=== PATIENT | male | born 1955 | race Caucasian/White ===

== ENCOUNTER 2020-09-16 10:03 | Outpatient (REF) | payer MEDICARE, SELFPAY ==
--- NOTE | 2020-09-16 | US_ITS ---
EXAMINATION: US RETROPERITONEAL LIMITED (RENAL ONLY) CLINICAL INFORMATION: Renal stone. COMPARISON: Limited retroperitoneal ultrasound dated 01/21/2020. CT abdomen and pelvis without contrast dated 07/31/2019. TECHNIQUE: Real-time imaging of the kidneys. FINDINGS: RIGHT KIDNEY: 11.2 x 6.3 x 6.1 cm (SAG x AP x TRV). The kidney is normal in size, contour, and echogenicity. Renal cortical thickness is normal. No calculi or focal parenchymal lesions. No hydronephrosis. LEFT KIDNEY: 10.7 x 5.3 x 4.9 cm (SAG x AP x TRV). The kidney is normal in size, contour, and echogenicity. Renal cortical thickness is normal. No renal calculi or hydronephrosis. At the interpolar aspect, 2.7 cm and 2.5 cm maximal diameter parapelvic simple cysts are seen seen. At the lower pole, a 3.2 cm in maximal diameter exophytic, simple cyst is seen. US/US renal BI IMPRESSION: 1. No renal calculus or obstructive uropathy is seen bilaterally. 2. There are left renal cysts again seen..
== END 2020-09-16 10:04 | disposition home or self-care (01) ==
LOC: HO.HMGCX 10:03
PROVIDERS: PCP Hospitalist; Visit Provider Urology
DX: N20.0 Calculus of kidney (principal)
CPT/HCPCS: 76775

== ENCOUNTER 2021-01-25 08:04 | Outpatient (REF) | payer SELFPAY ==
--- NOTE | 2021-01-25 08:17 | MHC.AU.P13 ---
Hearing Instrument Maintenance Date of Visit: 01/25/21 Right Ear: Volunteer Services Manager: Phonak Model: VIRTO CROS B-312 Serial Number: [id number] Repair Warranty: 02/17/2022 Loss and Damage Warranty: 02/17/2022 Battery Size: 312 Type of Wax Guard: CERUSTOP Left Ear: Volunteer Services Manager: Phonak Model: VIRTO B90-312 Serial Number: [id number] RepairWarranty: 02/17/2022 Loss and Damage Warranty: 02/17/2022 Battery Size: 312 Type of Wax Guard: CERUSTOP Follow-Up Summary: Patient brought in aids for cleaning. Cleaned and replaced wax guards - amplifying clearly. Patient reports seeing Dr. Acosta next week for wax removal - he's been getting feedback. Recommendations: Recommendations: Hearing instrument follow-up or maintenance as needed. Signature: Provider: SHEFALI Bass-HIS
== END 2021-01-25 08:05 | disposition home or self-care (01) ==
LOC: HO.HAP 08:04
PROVIDERS: Visit Provider Hospitalist
DX: Z46.1 Encounter for fitting and adjustment of hearing aid (principal)
CPT/HCPCS: V5267

== ENCOUNTER 2021-02-02 09:53 | Outpatient (REF) | payer SELFPAY | END 2021-02-02 09:54 | disposition home or self-care (01) | LOC: HO.HAP 09:53 | PROVIDERS: Visit Provider Hospitalist | DX: Z13.89 Encounter for screening for other disorder (principal) ==

== ENCOUNTER 2021-02-17 09:52 | Outpatient (REF) | payer SELFPAY | END 2021-02-17 09:53 | disposition home or self-care (01) | LOC: HO.HAP 09:52 | PROVIDERS: Visit Provider Hospitalist | DX: Z13.89 Encounter for screening for other disorder (principal) ==

== ENCOUNTER 2021-08-29 08:02 | Outpatient (REF) | payer SELFPAY ==
--- NOTE | 2021-08-29 08:16 | MHC.AU.P13 ---
Hearing Instrument Maintenance Date of Visit: 08/29/21 Right Ear: Bacteriologist Medical: Phonak Model: VIRTO CROS B-312 Serial Number: [id number] Repair Warranty: 02/17/2022 Loss and Damage Warranty: 02/17/2022 Battery Size: 312 Color: [place] Type of Wax Guard: CERUSTOP Dispensed By: [facility] Date of Fittin02/03/2019 Left Ear: Bacteriologist Medical: Phonak Model: VIRTO B90-312 Serial Number: [id number] Repair Warranty: 02/17/2022 Loss and Damage Warranty: 02/17/2022 Battery Size: 312 Color: [place] Type of Wax Guard: CERUSTOP Dispensed By: [facility] Date of Fittin02/03/2019 Follow-Up Summary: Patient reports recent ear infection - being treated by Dr. Acosta. Hearing aids cleaned and amplifying clearly. Patient will return to Dr. Acosta if he feels hearing still not improved. Diagnosis Code(s): Primary Diagnosis: H90.3 Bilateral Sensorineural Hearing Loss Signature: Provider: SHEFALI Bass-
== END 2021-08-29 08:03 | disposition home or self-care (01) ==
LOC: HO.HAP 08:02
PROVIDERS: Visit Provider Hospitalist
DX: Z13.89 Encounter for screening for other disorder (principal)

== ENCOUNTER → 2021-09-18 09:17 | Outpatient (BNVA) | payer MEDICARE, SELFPAY | PROVIDERS: PCP Hospitalist; Visit Provider Internal Medicine | DX: S40.021A Contusion of right upper arm, initial encounter (principal); S60.511A Abrasion of right hand, initial encounter; S20.311A Abrasion of right front wall of thorax, initial encounter; S10.91XA Abrasion of unspecified part of neck, initial encounter; Y04.0XXA Assault by unarmed brawl or fight, initial encounter; Y93.9 Activity, unspecified; Y92.9 Unspecified place or not applicable; Y99.0 Civilian activity done for income or pay | CPT/HCPCS: 90471; 90715; 99202 ==

== ENCOUNTER → 2021-09-21 12:50 | Outpatient (BNVA) | payer MEDICARE, SELFPAY | PROVIDERS: PCP Hospitalist; Visit Provider Internal Medicine | DX: S50.11XA Contusion of right forearm, initial encounter (principal); Y04.8XXA Assault by other bodily force, initial encounter | CPT/HCPCS: 99213 ==

== ENCOUNTER 2022-01-15 10:54 | Outpatient (REF) | payer OTHER, SELFPAY | END 2022-01-15 10:55 | disposition home or self-care (01) | LOC: HO.HAP 10:54 | PROVIDERS: Visit Provider Hospitalist | DX: Z13.89 Encounter for screening for other disorder (principal) ==

== ENCOUNTER 2022-01-30 08:58 | Outpatient (REF) | payer MEDICARE, SELFPAY ==
--- NOTE | 2022-02-12 10:45 | MHC.AU.AHA ---
Adult Audiological Evaluation Date of Visit: 01/30/22 Lending Consultant Used: Not Applicable Reason for Appointment: Referred for audiologic re-evaluation to determine possible change in hearing ability. Ervin has a long-standing history asymmetric hearing loss. Previous Hearing Test Results: 04/11/2020 Dr. Acosta's office Left ear - Mild low frequency, dropping to profound high frequency sensorineural hearing loss with 96% speech understanding at 70 dB HL. Right ear - No functional hearing ability Medical History: Medical History: High Blood Pressure, Borderline Diabetes Medication List: Not available Hearing Instrument History- Right Ear: Green Building Engineer: Phonak Model: VIRTO CROS B-312 Serial Number: [id number] Battery Size: 312 Repair Warranty: 08/11/2021 Dispensed By: [facility] Date of Fittin02/03/2019 Hearing Instrument History- Left Ear: Green Building Engineer: Phonak Model: VIRTO B90-312 Serial Number: [id number] Battery Size: 312 Warranty: 02/17/2022 Loss and Damage Warranty: 02/17/2022 Dispensed By: [facility] Date of Fittin02/03/2019 Otoscopy: Right Ear: Unremarkable Left Ear: Unremarkable Tympanometry:Did not test as all previous results have indicated normal middle ear function for both ears. Hearing Evaluation: Transducer(s) Used: Insert Earphones Bone Conduction Method: Conventional Audiometry Stimuli Used: Pure Tones Right Ear: Description of Hearing: Did Not Test due to history of no functional hearing Left Ear: Description of Hearing: Mild mixed hearing loss 250-2000 Hz, dropping to a profound mixed hearing loss 1051-7042 Hz. Speech Recognition Threshold (SRT): Method Used: Monitored Live Voice Stimuli Used: Spondee Words Right Ear: Could Not Test Left Ear: 35 dB HL Word Discrimination: Method: Recorded Lists Word Lists Used: NU-6 Right Ear: Could Not Test Left Ear: 100% at 75 dB HL Comparison: Compared to the most recent evaluation: Hearing is overall stable. Compared to most recent evaluation: Greater conductive components noted today compared to 2020 results. Recommendations: Audiological re-evaluation if changes are noted. Hearing aid(s) reprogrammed with updated test results. Continue with follow-up with Dr. Acosta as advised. Diagnosis: Primary Diagnosis: H90.3 Bilateral Sensorineural Hearing Loss Services Performed: Comprehensive Audiological Evaluation (CPT 39409) Signature: Provider: Michelle Powell, CCC-A
== END 2022-01-30 08:59 | disposition home or self-care (01) ==
LOC: HO.SH 08:58
PROVIDERS: Visit Provider Otolaryngology
DX: H90.3 Sensorineural hearing loss, bilateral (principal)
CPT/HCPCS: 92557

== ENCOUNTER 2022-03-16 10:01 | Outpatient (REF) | payer SELFPAY | END 2022-03-16 10:02 | disposition home or self-care (01) | LOC: HO.HAP 10:01 | PROVIDERS: Visit Provider Hospitalist | DX: Z46.1 Encounter for fitting and adjustment of hearing aid (principal) | CPT/HCPCS: 99499 ==

== ENCOUNTER 2022-08-27 09:29 | Outpatient (REF) | payer SELFPAY ==
--- NOTE | 2022-08-27 11:37 | MHC.AU.HFU ---
Hearing Instrument Follow-Up- Binaural Date of Visit: 08/27/22 Right Ear: Marriage Counselor: Phonak CROS B-312, #[id number] Repair Warranty: 08/11/2021 Loss and Damage Warranty: 02/17/2022 Battery Size: 312 Type of Wax Guard: CERUSTOP Dispensed By: [facility] Date of Fittin02/03/2019 Left Ear: Marriage Counselor: Phonak Virto B90-312, #[id number] Repair Warranty: 02/17/2022 Loss and Damage Warranty: 02/17/2022 Battery Size: 312 Type of Wax Guard: CERUSTOP Dispensed By: [facility] Date of Fittin02/03/2019 Follow-Up Summary: Patient dropped off his hearing instruments, reporting there has been a hissing sound. He has also noticed for a week leading up to the hissing sound that the CROS did not seem to be transmitting much sound. Hearing instruments inspected and cleaned. When the right CROS is off, the left hearing aid sounds normal. When the CROS is on, a constant hissing noise is heard. The CROS is also not transmitting any other sounds. Placed CROS in the electric dehumidifier for several minutes, but did not improve. Called patient to discuss. We will sent the right CROS out for repair out of warranty- discussed $415 cost. Patient came to pick the left side back up so he can continue to use it until the CROS returns. Recommendations: Patient will be contacted when materials have arrived. Diagnosis Code(s): Primary Diagnosis: H90.3 Bilateral Sensorineural Hearing Loss Signature: Provider: Quang Lopez, [facility]
== END 2022-08-27 09:30 | disposition home or self-care (01) ==
LOC: HO.HAP 09:29
PROVIDERS: Visit Provider Hospitalist
DX: Z13.89 Encounter for screening for other disorder (principal)

== ENCOUNTER 2022-09-26 11:27 | Outpatient (REF) | payer MEDICARE, SELFPAY ==
--- NOTE | 2022-09-26 11:57 | MHC.AU.HFU ---
Hearing Instrument Follow-Up- Binaural Date of Visit: 09/26/22 Right Ear: Phonak CROS B-312 SN: [id number] Color: [place] Repair Warranty: 02/28/2023 Loss and Damage Warranty: 02/17/2022 Battery Size: 312 Type of Wax Guard: CERUSTOP Dispensed By: [facility] Date of Fittin02/03/2019 Left Ear: Phonak Virto B90-312 SN: [id number] Color: [place] Repair Warranty: 02/17/2022 Loss and Damage Warranty: 02/17/2022 Battery Size: 312 Type of Wax Guard: CERUSTOP Dispensed By: [facility] Date of Fittin02/03/2019 Follow-Up Summary: Fabrizio picked up his repaired CROS device. Confirmed connection to left hearing aid via [employer]. A listening check demonstrated that the CROS device is transmitting properly with no static sound in the hearing aid. Fabrizio confirmed clear sound quality. Paid $415.00 at front end developer [employer] for repair. Recommendations: Advised of 6 month warranty on CROS device and to call if problems arise. Diagnosis Code(s): Primary Diagnosis: H90.3 Bilateral Sensorineural Hearing Loss Signature: Provider: Quang Cuellar, [facility]-A
== END 2022-09-26 11:28 | disposition home or self-care (01) ==
LOC: HO.HAP 11:27
PROVIDERS: Visit Provider Hospitalist
DX: Z46.1 Encounter for fitting and adjustment of hearing aid (principal); H90.3 Sensorineural hearing loss, bilateral
CPT/HCPCS: V5014

== ENCOUNTER 2023-04-09 11:28 | Outpatient (REF) | payer SELFPAY | END 2023-04-09 11:29 | disposition home or self-care (01) | LOC: HO.HAP 11:28 | PROVIDERS: Visit Provider Hospitalist | DX: Z13.89 Encounter for screening for other disorder (principal) ==

== ENCOUNTER 2023-04-10 13:40 | Outpatient (REF) | payer SELFPAY | END 2023-04-10 13:41 | disposition home or self-care (01) | LOC: HO.HAP 13:40 | PROVIDERS: Visit Provider Hospitalist | DX: Z46.1 Encounter for fitting and adjustment of hearing aid (principal); H90.3 Sensorineural hearing loss, bilateral | CPT/HCPCS: 92592 ==

== ENCOUNTER 2023-05-21 10:15 | Outpatient (REF) | payer SELFPAY | END 2023-05-21 10:16 | disposition home or self-care (01) | LOC: HO.HAP 10:15 | PROVIDERS: Visit Provider Hospitalist | DX: Z13.89 Encounter for screening for other disorder (principal) ==

== ENCOUNTER 2023-05-23 14:41 | Outpatient (REF) | payer SELFPAY | END 2023-05-23 14:42 | disposition home or self-care (01) | LOC: HO.HAP 14:41 | PROVIDERS: Visit Provider Hospitalist | DX: Z46.1 Encounter for fitting and adjustment of hearing aid (principal); H90.3 Sensorineural hearing loss, bilateral | CPT/HCPCS: 92593 ==

== ENCOUNTER 2023-08-29 15:04 | Outpatient (REF) | payer SELFPAY ==
--- NOTE | 2023-08-30 07:43 | MHC.AU.HA3 ---
Hearing Instrument Follow-Up- Binaural Date of Visit: 08/29/23 Right Ear: Make, Model, Color, Serial Number: Farhan CROS B-312 SN: [id number] Color: [place] [employer] Repairer Repair Warranty: 02/28/2023 [employer] Repairer Loss and Damage Warranty: 02/17/2022 Battery Size: 312 Type of Wax Guard: CeruStop Dispensed By: [facility] Date of Fittin02/03/2019 Left Ear: Make, Model, Color, Serial Number: Farhan Virto B90-312 SN: [id number] Color: [place] [employer] Repairer Repair Warranty: 02/17/2022 [employer] Repairer Loss and Damage Warranty: 02/17/2022 Battery Size: 312 Type of Wax Guard: CeruStop Dispensed By: [facility] Date of Fittin02/03/2019 Follow-Up Summary: Fabrizio reported he is not hearing well through his left hearing aid. Upon inspection, wax build up noted inside hearing aid behind wax guard with wax guard system broken/pushed into hearing aid. Hearing aid sounds weak. Will need to send to [employer] for repair. Quoted $330.00 due at tack picker. Fabrizio approved. He decided to leave his right CROS device here to hold while left hearing aid is out for repair. He will use his old left hearing aid in the meantime. Recommendations: Patient will be contacted when materials have arrived. Recommendations (Other): Will owe $330.00 at tack picker. Right CROS device in repair drawer to be reconnected to left hearing aid upon arrival. Diagnosis Code(s): Primary Diagnosis: H90.3 Bilateral Sensorineural Hearing Loss Signature: Provider: Quang Cuellar, [facility]-A
== END 2023-08-29 15:05 | disposition home or self-care (01) ==
LOC: HO.HAP 15:04
PROVIDERS: Visit Provider Hospitalist
DX: Z13.89 Encounter for screening for other disorder (principal)

== ENCOUNTER 2023-09-04 14:59 | Outpatient (REF) | payer SELFPAY | END 2023-09-04 15:00 | disposition home or self-care (01) | LOC: HO.HAP 14:59 | PROVIDERS: Visit Provider Hospitalist | DX: Z13.89 Encounter for screening for other disorder (principal) ==

== ENCOUNTER 2023-09-11 14:39 | Outpatient (REF) | payer SELFPAY | END 2023-09-11 14:40 | disposition home or self-care (01) | LOC: HO.HAP 14:39 | PROVIDERS: Visit Provider Hospitalist | DX: Z13.89 Encounter for screening for other disorder (principal) ==

== ENCOUNTER 2023-11-26 13:27 | Outpatient (REF) | payer SELFPAY | END 2023-11-26 13:28 | disposition home or self-care (01) | LOC: HO.HAP 13:27 | PROVIDERS: Visit Provider Hospitalist | DX: Z13.89 Encounter for screening for other disorder (principal) ==

== ENCOUNTER 2023-11-29 08:56 | Outpatient (REF) | payer MEDICARE, SELFPAY ==
--- NOTE | 2023-11-29 12:41 | MHC.AU.HA3 ---
Hearing Instrument Follow-Up- Binaural Date of Visit: 11/29/23 Right Ear: Make, Model, Color, Serial Number: Farhan TORREZ B-312 SN: [id number] Color: [place] [employer] Repair Warranty: 02/28/2023 [employer] Loss and Damage Warranty: 02/17/2022 Battery Size: 312 Type of Wax Guard: CeruStop Dispensed By: [facility] Date of Fittin02/03/2019 Left Ear: Make, Model, Color, Serial Number: Farhan Boseo B90-312 SN: [id number] Color: [place] [employer] Repair Warranty: 02/17/2022 Air Drier Loss and Damage Warranty: 02/17/2022 Battery Size: 312 Type of Wax Guard: CeruStop Dispensed By: [facility] Date of Fittin02/03/2019 Follow-Up Summary: Fabrizio returned to picker packer his hearing aids that he dropped off on 11/27/2023 due to a screeching noise. Reran feedback analyzer in left ear and no feedback noted in office. Fabrizio reported he was recently diagnosed with a left-sided ear infection and is currently on antibiotics. He also thinks he hears better with his old hearing aid compared to his newer one. Recommended updated hearing test and subsequent reprogramming. Fabrizio reported he may have had a more recent test at Dr. Acosta's office. If so, he will get results and then schedule an appointment for an adjustment. If not, he will request a doctor's order be faxed to schedule an updated hearing test here. Dr. Acosta also reportedly recommended swim plugs for water activities due to frequent ear infections. Fabrizio inquired about custom plugs. Quoted $130.00. He will consider his options and make an appointment for impressions if he opts to pursue custom swim plugs. Recommendations: Hearing instrument follow-up or maintenance as needed. Please contact our clinic with any questions or concerns. Diagnosis Code(s): Primary Diagnosis: H90.A32 Mixed HL, Unilateral, Left Ear, W/Restricted Contralateral Secondary Diagnosis: H90.A21 SNHL, Unilateral Right Ear, W/Restricted Contralateral Hearing Signature: Provider: Quang Cuellar, [facility]-A
== END 2023-11-29 08:57 | disposition home or self-care (01) ==
LOC: HO.HAP 08:56
PROVIDERS: Visit Provider Hospitalist
DX: Z46.1 Encounter for fitting and adjustment of hearing aid (principal); H90.A32 Mixed conductive and sensorineural hearing loss, unilateral, left ear with restricted hearing on the contralateral side; H90.A21 Sensorineural hearing loss, unilateral, right ear, with restricted hearing on the contralateral side
CPT/HCPCS: V5267

== ENCOUNTER 2023-12-18 12:55 | Outpatient (REF) | payer SELFPAY ==
--- NOTE | 2023-12-18 14:53 | MHC.AU.HA3 ---
Hearing Instrument Follow-Up- Binaural Date of Visit: 12/18/23 Right Ear: Make, Model, Color, Serial Number: Farhan CROS B-312 SN: [id number] Color: [place] Delivery Clerk Repair Warranty: 02/28/2023 Delivery Clerk Loss and Damage Warranty: 02/17/2022 Battery Size: 312 Type of Wax Guard: CeruStop Dispensed By: [facility] Date of Fittin02/03/2019 Left Ear: Make, Model, Color, Serial Number: Farhan Virto B90-312 SN: [id number] Color: [place] Delivery Clerk Repair Warranty: 09/06/2024 Delivery Clerk Loss and Damage Warranty: 02/17/2022 Battery Size: 312 Type of Wax Guard: CeruStop Dispensed By: [facility] Date of Fittin02/03/2019 Follow-Up Summary: Fabrizio provided an updated hearing test from Dr. Acosta's office from 12/17/2023. Overall left ear hearing is stable with decrease noted at 6 and 8 kHz. Ran feedback analyzer again with significant limit to amplification due to feedback curve. Plugged vent as best as possible and reran feedback analyzer with noted improvement in feedback curve although still limiting high frequency gain. Reprogrammed hearing aid to updated hearing test. Discussed that hearing aid is almost maxed out. Briefly discussed new hearing aids with stronger box hinge and lock attacher. Fabrizio is not ready to pursue new hearing aids at this time. He will try with new settings for now. He is also still considering custom swim plugs. However, he leaves for vacation in two weeks. He will schedule an appointment when he returns for ear mold impressions if he decides to pursue swim plugs. Recommendations: Hearing instrument follow-up or maintenance as needed. Please contact our clinic with any questions or concerns. Diagnosis Code(s): Primary Diagnosis: H90.3 Bilateral Sensorineural Hearing Loss Signature: Provider: Quang Cuellar, [facility]
== END 2023-12-18 12:56 | disposition home or self-care (01) ==
LOC: HO.HAP 12:55
PROVIDERS: Visit Provider Hospitalist
DX: Z13.89 Encounter for screening for other disorder (principal)

== ENCOUNTER 2024-05-20 13:19 | Outpatient (REF) | payer SELFPAY | END 2024-05-20 13:20 | disposition home or self-care (01) | LOC: HO.HAP 13:19 | PROVIDERS: Visit Provider Hospitalist | DX: Z13.89 Encounter for screening for other disorder (principal) ==

== ENCOUNTER 2024-05-21 14:23 | Outpatient (REF) | payer SELFPAY | END 2024-05-21 14:24 | disposition home or self-care (01) | LOC: HO.HAP 14:23 | PROVIDERS: Visit Provider Hospitalist | DX: Z46.1 Encounter for fitting and adjustment of hearing aid (principal); H90.3 Sensorineural hearing loss, bilateral | CPT/HCPCS: 92593 ==

== ENCOUNTER 2024-08-25 14:24 | Outpatient (REF) | payer SELFPAY ==
--- NOTE | 2024-08-26 12:42 | MHC.AU.HA3 ---
Hearing Instrument Follow-Up- Binaural Date of Visit: 08/26/24 Right Ear: Make, Model, Color, Serial Number: Farhan CROS B-312 SN: [id number] Color: [place] Intensivist Repair Warranty: 02/28/2023 Intensivist Loss and Damage Warranty: 02/17/2022 [facility] Service Plan: Battery Size: 312 Filter Bed Placer/Slim Tube: [place]/Dome/CShell/SlimTip: Type of Wax Guard: CeruStop Dispensed By: [facility] Date of Fittin02/03/2019 Left Ear: Make, Model, Color, Serial Number: Farhan Virto B90-312 SN: [id number] Color: [place] Intensivist Repair Warranty: 09/06/2024 Intensivist Loss and Damage Warranty: 02/17/2022 [facility] Service Plan: Battery Size: 312 Filter Bed Placer/Slim Tube: [place]/Dome/CShell/SlimTip: Type of Wax Guard: CeruStop Dispensed By: [facility] Date of Fittin02/03/2019 Follow-Up Summary: Aid and CROS dropped off. Left SEWELL band straightener has fallen into SEWELL body. Sending to director rehabilitation program for repair, still under warranty from last repair. Cleaned CROS, holding in repair drawer to be picked up with aid when it is back. Left message for patient. Recommendations: Recommendations: Patient will be contacted when materials have arrived. Diagnosis Code(s): Primary Diagnosis: H90.3 Bilateral Sensorineural Hearing Loss Secondary Diagnosis: H90.A21 SNHL, Unilateral Right Ear, W/Restricted Contralateral Hearing Signature: Provider: Quang Barriga, [facility]-A
== END 2024-08-25 14:25 | disposition home or self-care (01) ==
LOC: HO.HAP 14:24
PROVIDERS: Visit Provider Hospitalist
DX: Z13.89 Encounter for screening for other disorder (principal)

== ENCOUNTER 2024-09-10 10:15 | Outpatient (REF) | payer SELFPAY | END 2024-09-10 10:16 | disposition home or self-care (01) | LOC: HO.HAP 10:15 | PROVIDERS: Visit Provider Hospitalist | DX: Z46.1 Encounter for fitting and adjustment of hearing aid (principal); H90.3 Sensorineural hearing loss, bilateral; H90.A21 Sensorineural hearing loss, unilateral, right ear, with restricted hearing on the contralateral side | CPT/HCPCS: 92593 ==

== ENCOUNTER 2024-09-15 08:05 | Outpatient (REF) | payer SELFPAY | END 2024-09-15 08:06 | disposition home or self-care (01) | LOC: HO.HAP 08:05 | PROVIDERS: Visit Provider Hospitalist | DX: Z13.89 Encounter for screening for other disorder (principal) ==

== ENCOUNTER 2024-09-25 12:55 | Outpatient (REF) | payer SELFPAY | END 2024-09-25 12:56 | disposition home or self-care (01) | LOC: HO.HAP 12:55 | PROVIDERS: Visit Provider Hospitalist | DX: Z13.89 Encounter for screening for other disorder (principal) ==

== ENCOUNTER 2024-09-30 13:58 | Outpatient (REF) | payer SELFPAY | END 2024-09-30 13:59 | disposition home or self-care (01) | LOC: HO.HAP 13:58 | PROVIDERS: Visit Provider Hospitalist | DX: Z13.89 Encounter for screening for other disorder (principal) ==

== ENCOUNTER 2024-10-22 13:54 | Outpatient (REF) | payer SELFPAY ==
--- OUTSIDE RECORDS SUMMARY | 2024-10-22 13:56 | XMS_ITS | Continuity of Care Document ---
Author Organization [facility] [place] Address [address] [place] [address]- Care Team Providers Care Laboratory Animal Facility Supervisor Name Role Phone Angelica Middleton MD Primary Care Physician [phone] En[place] [facility] [place] 09/22/24 - 09/29/24 [facility] Adult [address] [place] [address]- Encounter Diagnosis Encounter to establish care with new doctor(Discharge Diagnosis) - 09/22/24 Depression, major, in remission(Discharge Diagnosis) - 09/22/24 Diabetes type 2(Discharge Diagnosis) - 09/22/24 Anxiety(Discharge Diagnosis) - 09/22/24 Benign hypertension(Discharge Diagnosis) - 09/22/24 Hypertriglyceridemia(Discharge Diagnosis) - 09/22/24 Irritable bowel syndrome (IBS)(Discharge Diagnosis) - 09/22/24 Obesity(Discharge Diagnosis) - 09/22/24 Diarrhea(Discharge Diagnosis) - 09/22/24 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) - 09/22/24 Attending Physician: Angelica Middleton MD Encounter Type: Office Visit Allergies, Adverse Reactions, Alerts Substance Criticality Severity Reaction Reaction Severity Status oxyCODONE severe vomiting Acti ve Neosporin topical ointment 1 Active Other Environmental Allergy 2 Stuffy and runny nose 24-AUG-2016 21:52:24<$> Active 1Anaphylaxis 2Seasonal allergies Immunizations Given and Recorded Vaccine Date Status Refusal Reason pneumococcal 13-valent vaccine 1 11/16/21 Given tetanus/diphtheria/pertussis, acel(Tdap) 09/18/21 Recorded influenza virus vaccine, inactivated 08/04/21 Elpidio rded influenza virus vaccine, inactivated 09/12/20 Elpidio rded influenza virus vaccine, inactivated 09/17/12 Elpidio rded SARS-CoV-2 (COVID-19) mRNA BNT-162b2 vac 08/04/21 Recorded SARS-CoV-2 (COVID-19) mRNA BNT-162b2 vac 01/29/21 Recorded SARS-CoV-2 (COVID-19) mRNA BNT-162b2 vac 01/08/21 Recorded zoster vaccine, inactivated 11/15/20 Recorded zoster vaccine, inactivated 09/12/20 Recorded pneumococcal 23-valent vaccine 2 11/05/19 Given Influenza Virus Vaccine (oldterm) 3 10/05/19 Recor ded Fluvirin (oldterm) 4 10/09/12 Given Tet/diphth/pertussis, acel (oldterm) 04/05/11 Give n Tetanus Toxoid Vaccine (oldterm) 11/11/99 Given 1Result Comment: [id number] 2Result Comment: [facility]-[id number] 3Result Comment: pt received flu at [employer] 4Ain Note: LULI 09/17/12 Problem List Condition Confirmation Course Effective Dates Status Health Status Informant Anxiety Confirmed 10/01/07 Active Benign hypertension Confirmed Active Cough due to bronchospasm Confirmed Active 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 Confirmed Active Diarrhea Confirmed Active Hypertriglyceridemia Confirmed 07/02/06 Active Irritable bowel syndrome (IBS) Confirmed Active Depression, major, in remission Confirmed 10/01/07 Active Obesity Confirmed Active Seasonal allergic rhinitis Confirmed 07/02/06 Active Diabetes type 2 Confirmed Active Type 2 diabetes mellitus with renal complication Confirmed Active Diagnosis Diagnosis Type Effective Dates Health Status Clinical Service Informant Encounter to establish care with new doctor Discharge Diagnosis 09/22/24 Depression, major, in remission Discharge Diagnosis 09/22/24 Diabetes type 2 Discharge Diagnosis 09/22/24 Anxiety Discharge Diagnosis 09/22/24 Benign hypertension Discharge Diagnosis 09/22/24 Hypertriglyceridemia Discharge Diagnosis 09/22/24 Irritable bowel syndrome (IBS) Discharge Diagnosis 09/22/24 Obesity Discharge Diagnosis 09/22/24 Diarrhea Discharge Diagnosis 09/22/24 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 Discharge Diagnosis 09/22/24 Vital Signs Most recent to oldest [Reference Range]: 1 Height 166 cm (09/22/24 9:56 AM) Weight 76.9 kg (09/22/24 9:56 AM) Oxygen Saturation [94-100 %] 98 % (09/22/24 9:56 AM) Pulse Rate [55-90 bpm] 81 bpm (09/22/24 9:56 AM) Body Mass Index [18.5-24.99 kg/m2] 27.91 kg/m2 *H* (09/22/24 9:56 AM) Blood Pressure [90-138/55-84 mm Hg] 121/ 71mm Hg (09/22/24 9:56 AM) Weight Obtained Via Standing scale (09/22/24 9:56 AM) Social History Social History Type Response Smoking Status Never smoker entered on: 12/16/15 Sex Sex Representation Male (finding) Note * Lucius Schmidt: PERFORM Event Display: Patient Education/Instruction Authored Date: [id number] Ambulatory Adult Visit Summary [facility] Adult [facility] [address], [place] [id number] Name: MARVIN GUDINO : 1955?? Visit: 09/22/2024 09:23?? Ambulatory Visit Instructions ?? Your Care Team Primary Care Provider Angelica Middleton MD? 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 With: Angelica Middleton MD Where: [facility] [address] [place] [address]- Status: Pending Follow-Up Appointments Follow Up with??Angelica Middleton MD When:??Within 3 months Why: 3 mo DM f/u Where: [address] [facility] [place] [address]- Future Orders Hemoglobin A1C (Monitoring) - Once, *Est. 01/09/24, Single or Recurring Future Order?? Medications The list below reflects the information in our records and provided by you today along with any changes made during this visit. Please continue your medications until treatment is completed or stopped by your provider. If this is different from the information you have or there are other questions,please contact the prescribing provider. What How Much When Why Instructions New Atorvastatin (atorvastatin 40 mg oral tablet) 1 tab(s) Oral Daily Hypertriglyceridemia Refills: 3 Pickup at [facility] New dapagliflozin (Farxiga 5 mg oral tablet) 1 tab(s) Oral Daily Diabetes type 2 Refills: 3 Pickup at [facility] New Loperamide (Imodium A-D 2 mg oral tablet) 1 tab(s) Oral Every 4 hours as needed for for loose stool Irritable bowel syndrome (IBS) Diarrhea Refills: 5 Pickup at [facility] New Niacin (niacin 250 mg oral capsule, extended release) 1 capsule Oral Daily Hypertriglyceridemia Duration: 90 Days Refills: 3 Pickup at [facility] Changed GlipiZIDE (glipiZIDE 10 mg oral tablet) 2 tab(s) Oral Daily Diabetes type 2 Duration: 90 Days Pickup at [facility] Changed GlipiZIDE (glipiZIDE 10 mg oral tablet, extended release) 1 tab(s) Oral Daily Unchanged Amlodipine-Valsartan (amlodipine-valsartan 5 mg-160 mg oral tablet) 1 tab(s) Oral Daily Unchanged Durable Medical Equipment (Alcohol Pads) See instructions Use to clean finger prior to checking blood glucose once a day. Allow to dry completely. ?? Unchanged Durable Medical Equipment (Freestyle Lite Lancets) See instructions Check blood glucose once a day in the morning fasting. ?? Pickup at [facility] Unchanged Durable Medical Equipment (Freestyle Lite Monitor) See instructions Check blood glucose once a day in the morning fasting. ?? Pickup at [facility] Unchanged Durable Medical Equipment (Freestyle Lite Test Strips) See instructions Check blood glucose once a day in the morning fasting. ?? Pickup at [facility] Unchanged Metformin (MetFORMIN (Eqv-Glucophage XR) 500 mg oral tablet, extended release) 2 tab(s) Oral Twice a day Pharmacy Information [facility]: [address] [facility] [place] [id number] [phone] Test Performed Below is a partial list of the tests performed during your Visit. You may have had other tests and procedures not included in this list. Please discuss all test results with your provider. POC HBA1C ([facility]) Lab Test Results Below is a partial list of the most recent Laboratory test results done during your Visit. You may have had other tests and procedures not included in this list. Please discuss all test results with your provider. Test Name Test Result Date/Time POC HBA1C ([facility]) 7.9 % 09/22/2024 09:37 EST Medications and Immunizations Administered Medications Given During Visit No medications given during this visit.?? Allergies (NKA means No Known Allergies) Neosporin topical ointment Other Environmental Allergy??(Stuffy and runny nose 24-AUG-2016 21:52:24<$>) oxyCODONE??(severe vomiting) Common Emergency Awareness Tips IS IT A STROKE? Act FAST and Check for these signs: FACE Does the face look uneven? ARM Does one arm drift down? SPEECH Does their speech sound strange? TIME Call at any sign of stroke ?? Heart Attack Signs Chest discomfort: Most heart attacks involve discomfort in the center of the chest and lasts more than a few minutes, or goes away and comes back. It can feel like uncomfortable pressure, squeezing, fullness or pain. Discomfort in upper body: Symptoms can include pain or discomfort in one or both arms, back, neck, jaw or stomach. Shortness of breath: With or without discomfort. Other signs: Breaking out in a cold sweat, nausea, or lightheaded. Remember, MINUTES DO MATTER. If you experience any of these heart attack warning signs, call to get immediate medical attention! ?? Smoking can increase your chances of developing chronic health problems and can cause harmful effects to other family members in your house. If you smoke, you are strongly encouraged to quit. Please call [employer] at [phone] or [phone] ([phone]) or log in to [email or web address] for referrals to smoking cessation programs. ?? The National Suicide Prevention Hotline is available 03/06 if you or someone you know needs to find a reason to keep living. By calling 6-537-051-[employer] (5204) you'll be connected to a skilled, trained counselor at a crisis center in your area. [facility] [employer] Portal You can view and manage your care through the patient portal or by using a health care lissy of your choosing. [employer] is a website that allows you to securely view your medical information including your hospital discharge summary, office visit summaries, medications and follow-up visits. You can also request appointments, renew medications, and request access to your medical information using a health care lissy of your choosing, or just ask a question. You can enroll at [email or web address] or register during your next office visit. [facility], in keeping with [facility] guidance, no longer requires face masks for staff, patientsor visitors in most situations. Similiar to time spent indoors at other locations, there is the chance that you were exposed to repiratory viruses during your time with us (such as flu or COVID-19). If you develop symptoms concerning for a viral respiratory infection, please seek testing (and treatment if indicated) from your medical provider or home test kit. ?? Disclaimer: The information provided is of a general nature and is intended to be used in conjunction with the recommendations and advice of your health care practitioner. Every effort has been made to ensure that the information provided is accurate and complete at the time it is provided to you however, as your needs change, or, as new information becomes available, different or additional instructions may be required. ?? If you have questions, please consult with your primary care provider or pharmacist, as appropriate. This information is not intended to serve as substitution for assessment and evaluation by a qualified health care provider. If you do not have a primary care provider, you may find a [facility] [employer] provider by calling [employer] Link at [phone]. Patient Care team information Care Team Personnel Name: Angelica Middleton MD Position: [facility] Physician - Primary Care Member Role: PCP Address: [address] [place] [address] [place] [address]- [place] [employer]: Care Team Related Persons Name: CASSANDRA GUDINO Name: JOHN GUDINO Insurance Providers Guarantor name: MARVIN GUDINO Health Plan Information #: 1 Payer: MEDICARE PART B OUTPT Member Number: [id number] Policy Number: NA Group Number: NA Health Plan Information #: 2 Payer: MEDEX Member Number: [id number] Policy Number: NA Group Number: NA
== END 2024-10-22 13:55 | disposition home or self-care (01) ==
LOC: HO.HAP 13:54
PROVIDERS: Visit Provider Hospitalist
DX: Z13.89 Encounter for screening for other disorder (principal)

== ENCOUNTER 2024-11-02 08:04 | Outpatient (REF) | payer SELFPAY | END 2024-11-02 08:05 | disposition home or self-care (01) | LOC: HO.HAP 08:04 | PROVIDERS: Visit Provider Hospitalist | DX: Z13.89 Encounter for screening for other disorder (principal) ==

== ENCOUNTER 2025-03-30 13:45 | Outpatient (REF) | payer SELFPAY ==
--- NOTE | 2025-03-31 10:14 | MHC.AU.HA3 ---
Hearing Instrument Follow-Up- Binaural Date of Visit: 03/30/25 Right Ear: Make, Model, Color, Serial Number: Phonak CROS [id number] SN: [id number] Color: Shannon Career Development Consultant Repair Warranty: 02/28/2023 Career Development Consultant Loss and Damage Warranty: 02/17/2022 Battery Size: 312 Type of Wax Guard: CeruStop Dispensed By: [facility] Date of Fittin02/03/2019 Left Ear: Make, Model, Color, Serial Number: Phonelida Virto [id number] SN: [id number] Color: Shannon Career Development Consultant Repair Warranty: 10/07/2024 Career Development Consultant Loss and Damage Warranty: 02/17/2022 Battery Size: 312 Type of Wax Guard: CeruStop Dispensed By: [facility] Date of Fittin02/03/2019 Follow-Up Summary: Left SEWELL reportedly making static noise only when connected to CROS. Confirmed via listening check. Did not resolve after cleaning, dehumidifier, etc. Called Phonelida, per Josette in audiology, assumes static being caused by microphones of CROS device itself, not SEWELL. Discussed options with Fabrizio - repair vs replace given age of devices. Fabrizio not ready to pursue new HAs at this time. Advised cannot guarantee issue will be resolved, may need to send SEWELL for repair as well. Ervin understood. Opted to send CROS for repair to start. Quoted $385.00 due at lemon picker. Sent right CROS to Linda [facility]. Recommendations: Patient will be contacted when materials have arrived. Recommendations (Other): Will need appointment to re-pair CROS with SEWELL and ensure static issue has been resolved. Diagnosis Code(s): Primary Diagnosis: H90.3 Bilateral Sensorineural Hearing Loss Signature: Provider: Quang Cuellar, [facility]
== END 2025-03-30 13:46 | disposition home or self-care (01) ==
LOC: HO.HAP 13:45
PROVIDERS: Visit Provider Hospitalist
DX: Z13.89 Encounter for screening for other disorder (principal)

== ENCOUNTER 2025-04-15 15:25 | Outpatient (REF) | payer SELFPAY ==
--- NOTE | 2025-04-15 16:07 | MHC.AU.HA3 ---
Hearing Instrument Follow-Up- Binaural Date of Visit: 04/15/25 Right Ear: Make, Model, Color, Serial Number: Farhan CROS [id number] SN: [id number] Color: Webb Recreation Director Repair Warranty: 02/28/2023 Recreation Director Loss and Damage Warranty: 02/17/2022 Battery Size: 312 Type of Wax Guard: CeruStop Dispensed By: [facility] Date of Fittin02/03/2019 Left Ear: Make, Model, Color, Serial Number: Farhan Virto [id number] SN: [id number] Color: Webb Recreation Director Repair Warranty: 10/07/2024 Recreation Director Loss and Damage Warranty: 02/17/2022 Battery Size: 312 Type of Wax Guard: CeruStop Dispensed By: [facility] Date of Fittin02/03/2019 Follow-Up Summary: Previous voicemail and email from Linda reporting they need to re-case the SEWELL, which requires a new impression and will increase the cost of the repair. Called Fabrizio approved new repair cost - quote $450.00 and scheduled this appointment to take impression. Impression taken, right ear, without incident. Sent to Linda, referencing case #: [id number] per Linda. Recommendations: Patient will be contacted when materials have arrived. Diagnosis Code(s): Primary Diagnosis: H90.3 Bilateral Sensorineural Hearing Loss Signature: Provider: Quang Cuellar, [facility]
== END 2025-04-15 15:26 | disposition home or self-care (01) ==
LOC: HO.HAP 15:25
PROVIDERS: Visit Provider Hospitalist
DX: Z13.89 Encounter for screening for other disorder (principal)

== ENCOUNTER 2025-05-13 08:33 | Outpatient (REF) | payer SELFPAY ==
--- NOTE | 2025-05-13 15:38 | MHC.AU.HA3 ---
Hearing Instrument Follow-Up- Binaural Date of Visit: 05/13/25 Right Ear: Make, Model, Color, Serial Number: Farhan CROS [id number] SN: [id number] Color: Ault Thermoscrew Operator Repair Warranty: 11/01/2025 via [employer] Thermoscrew Operator Loss and Damage Warranty: 02/17/2022 Battery Size: 312 Type of Wax Guard: CeruStop Dispensed By: [facility] Date of Fittin02/03/2019 Left Ear: Make, Model, Color, Serial Number: Farhan Virto [id number] SN: [id number] Color: Ault Thermoscrew Operator Repair Warranty: 10/07/2024 Thermoscrew Operator Loss and Damage Warranty: 02/17/2022 Battery Size: 312 Type of Wax Guard: CeruStop Dispensed By: [facility] Date of Fittin02/03/2019 Follow-Up Summary: Returned to pickup driver repaired CROS; however, once reconnected to SEWELL, original issue not resolved. Still hearing static in SEWELL - confirmed via listening check. Discussed options, including sending both SEWELL and CROS back to [employer] for investigation. However, Ervin is leaving for vacation to [place] at end of May. Did not want to be without SEWELL. He will drop off the SEWELL when he returns to be sent to [employer] with the CROS. CROS in 'Repair' drawer. *Called [facility] [employer]. Per Michael, recommend sending both CROS and SEWELL back to [facility] [employer]; however, additional charge may apply, depending on diagnostics (i.e., if something is wrong with SEWELL, charge will apply to repair of SEWELL). Reference case #: [id number] on repair form. Called Ervin - he does not understand why additional charge will apply when original issue was not resolved. Reported he will reconsider and decide how to proceed after his vacation. Recommendations: Hearing instrument follow-up or maintenance as needed. Please contact our clinic with any questions or concerns. Diagnosis Code(s): Primary Diagnosis: H90.3 Bilateral Sensorineural Hearing Loss Signature: Provider: Quang Cuellar, [facility]
== END 2025-05-13 08:34 | disposition home or self-care (01) ==
LOC: HO.HAP 08:33
PROVIDERS: Visit Provider Hospitalist
DX: Z13.89 Encounter for screening for other disorder (principal)

== ENCOUNTER 2025-07-14 14:33 | Outpatient (AMB) | payer SELFPAY | END 2025-07-14 14:55 | disposition home or self-care (01) | LOC: HO.HMGAL 14:33 | PROVIDERS: Visit Provider Registered Nurse Emergency | DX: J30.89 Other allergic rhinitis (principal) | CPT/HCPCS: 95117; 95165 ==

== ENCOUNTER 2025-08-03 10:08 | Outpatient (REF) | payer SELFPAY | END 2025-08-03 10:09 | disposition home or self-care (01) | LOC: HO.HAP 10:08 | DX: Z13.89 Encounter for screening for other disorder (principal) ==

== ENCOUNTER 2025-08-03 12:13 | Outpatient (REF) | payer SELFPAY | END 2025-08-03 12:14 | disposition home or self-care (01) | LOC: HO.HAP 12:13 | PROVIDERS: Visit Provider Hospitalist | DX: Z13.89 Encounter for screening for other disorder (principal) ==

== ENCOUNTER 2025-08-18 08:54 | Outpatient (AMB) | payer MEDICARE, SELFPAY | END 2025-08-18 10:02 | disposition home or self-care (01) | LOC: HO.HMGAL 08:54 | PROVIDERS: Visit Provider Registered Nurse Emergency | DX: J30.89 Other allergic rhinitis (principal) | CPT/HCPCS: 95117; 95165 ==

== ENCOUNTER 2025-08-19 08:58 | Outpatient (REF) | payer SELFPAY | END 2025-08-19 08:59 | disposition home or self-care (01) | LOC: HO.HAP 08:58 | PROVIDERS: Visit Provider Otolaryngology | DX: Z46.1 Encounter for fitting and adjustment of hearing aid (principal); H90.3 Sensorineural hearing loss, bilateral; H90.A21 Sensorineural hearing loss, unilateral, right ear, with restricted hearing on the contralateral side | CPT/HCPCS: V5014 ==

== ENCOUNTER 2025-10-18 09:19 | Outpatient (AMB) | payer MEDICARE, SELFPAY | END 2025-10-18 09:22 | disposition home or self-care (01) | LOC: HO.HMGAL 09:19 | PROVIDERS: Visit Provider Registered Nurse Emergency | DX: J30.89 Other allergic rhinitis (principal) | CPT/HCPCS: 95117; 95165 ==